=== PATIENT | female | born 1970 | race Caucasian/White ===

== ENCOUNTER 2022-11-16 10:54 | Outpatient (OUT) | payer OTHER, SELFPAY ==
--- NOTE | 2022-11-16 11:05 | MM_ITS ---
Patient: JAMES ROSS Exam Date: 11/16/2022 : 1970 Gender:F Ordering : DR TAMMI IBANEZ D.O. Admission #: [id number] Family : Order #: [id number] CLICK HERE TO VIEW EXAM RADIOLOGY REPORT PROCEDURE: MM TOMOSYNTHESIS SCREENING BI COMPARISON: MG MAMM SCREEN 3D JANUSZ CAD, 05/09/2021. INDICATIONS: mammogram screening Calculator Name NCI Breast Cancer Risk Assessment Tool 5 Year Breast Cancer Risk 1.40% Lifetime Breast Cancer Risk 12.00% Personal Breast Cancer No Personal Ovarian Cancer No Treatments None Family Cancers None LOCATION: [facility] BREAST COMPOSITION: Scattered areas fibroglandular density. FINDINGS: DIAGNOSTIC CATEGORY 1--NEGATIVE. RIGHT BREAST: No significant suspicious finding. No significant change has occurred. LEFT BREAST: No significant suspicious finding. No significant change has occurred. RECOMMENDATIONS: ROUTINE MAMMOGRAM AND CLINICAL EVALUATION IN 12 MONTHS. PLEASE NOTE: A NORMAL MAMMOGRAM DOES NOT EXCLUDE THE POSSIBILITY OF BREAST CANCER. A CLINICALLY SUSPICIOUS PALPABLE LUMP SHOULD BE BIOPSIED. Dictated by: Ras Coates M.D. on 11/17/2022 at 15:04 Approved by: Ras Coates M.D. on 11/17/2022 at 15:05
== END 2022-11-16 10:55 ==
LOC: MAMMO 10:58
PROVIDERS: PCP Internal Medicine; Visit Provider Internal Medicine
DX: Z12.31 Encounter for screening mammogram for malignant neoplasm of breast (principal)
CPT/HCPCS: 77063; 77067

== ENCOUNTER 2022-12-12 20:11 | Outpatient (REF) | payer OTHER, SELFPAY ==
[2022-12-18 10:10] LABS: Age Gdln ACOG Testing Note (.); HPV Aptima Negative (Negative); IGP, Aptima HPV, rfx 16/18,45 Note (.)
== END 2022-12-12 20:12 | disposition home or self-care (01) ==
LOC: LAB 20:11
PROVIDERS: PCP Internal Medicine; Visit Provider Physician Assistant
DX: Z01.419 Encounter for gynecological examination (general) (routine) without abnormal findings (principal)
CPT/HCPCS: 87624; G0145

== ENCOUNTER 2023-11-06 07:45 | Outpatient (OUT) | payer OTHER, SELFPAY ==
[2023-11-06 08:05] LABS: Basophils Absolute Auto 0.1 10^3/uL (0.0-0.1); Basophils Percent Auto 1.2 % (0.2-2.0); Eosinophils Absolute Auto 0.4 10^3/uL (0.0-0.7); Eosinophils Percent Auto 7.2 % (0.9-7.0); Hematocrit 42.6 % (36.0-48.0); Immature Granulocytes Abs Auto 0.02 10^3/uL (0.00-0.03); Immature Granulocytes Pct Auto 0.3 % (0.0-0.5); Lymphocytes Absolute Auto 1.7 10^3/uL (1.2-3.8); Lymphocytes Percent Auto 29.7 % (20.5-60.0); Mean Corpuscular HGB Conc 32.9 g/dL (29.9-35.2); Mean Corpuscular Hemoglobin 28.3 pg (26.7-34.0); Mean Corpuscular Volume 86.1 fL (81.0-99.0); Mean Platelet Volume 10.5 fL (9.5-13.5); Monocytes Absolute Auto 0.6 10^3/uL (0.3-0.8); Monocytes Percent Auto 9.9 % (1.7-12.0); Neutrophils Percent Auto 51.7 % (43.0-75.0); Platelet Count 241 10^3/uL (150-450); Red Blood Count 4.95 10^6/uL (4.20-5.40); Red Cell Distribution Width 13.4 % (11.0-15.0); White Blood Count 5.9 10^3/uL (4.0-11.0)
[2023-11-06 08:28] LABS: Alanine Aminotransferase 34 U/L (14-59); Albumin Level 3.3 g/dL (3.4-5.0); Alkaline Phosphatase 53 U/L (46-116); Anion Gap 10.7; Aspartate Amino Transferase 24 U/L (15-37); BUN Creatinine Ratio 15.6; Bilirubin Total 0.4 mg/dL (0.2-1.0); Carbon Dioxide 29.2 mmol/L (21.0-32.0); Chloride 106 mmol/L (98-107); Chol HDL Ratio 3.3; Cholesterol 210 mg/dL (<=200); Estimated GFR (African America >60 (>=60); Estimated GFR (Non-African Ame >60 (>=60); Globulin 3.4 g/dL; Glucose 90 mg/dL (74-106); HDL Cholesterol 63 mg/dL (40-60); Potassium 3.9 mmol/L (3.5-5.1); Sodium 142 mmol/L (136-145); Thyroid Stimulating Hormone 2.499 uIU/mL (0.358-3.740); Total Protein 6.7 g/dL (6.4-8.2); Triglycerides 114 mg/dL (<=150); VLDL CHOLESTEROL 22.8 mg/dL
== END 2023-11-06 07:46 | disposition home or self-care (01) ==
LOC: LAB 07:46
PROVIDERS: PCP Internal Medicine; Visit Provider Internal Medicine
DX: Z00.00 Encounter for general adult medical examination without abnormal findings (principal)
CPT/HCPCS: 36415; 80053; 80061; 84443; 85025

== ENCOUNTER 2024-01-15 18:44 | Outpatient (REF) | payer OTHER, SELFPAY ==
--- OUTSIDE RECORDS SUMMARY | 2024-01-15 19:00 | XMS_ITS | CCD ---
Author Organization [facility] Care Team Providers Care Hat Brusher Machine Name Role Phone SHAMAR, DR CADENA Attending Unavailable SHAMAR, DR CADENA Consulting Unavailable SHAMAR, DR CADENA Primary Care Unavailable SHAMAR, DR CADENA Admitting Unavailable Shamar, Prasad Unavailable Allergies Allergy Classification Reported Allergen(s) Allergy Type Date of Onset Reaction(s) Facility (1 source) Bacitracin / Neomycin / Polymyxin B Drug Allergy Unknown [facility] [employer] Other (2 sources) Bacitracin Drug Allergy 4 Unknown Reaction [facility] (2 sources) Neomycin Drug Allergy 4 Unknown Reaction [facility] (2 sources) polymyxin B Allergy to substance 4 Unknown Reaction [facility] Medications Current Medications Medication Drug Class(es) Dates Sig (Normalized) Sig (Original) ALPRAZolam 0.25 mg oral tablet (3 sources) Benzodiazepine Start: 09-10-2023 take 0.25 mg by mouth once daily Alprazolam Active 0.25 MG PO Daily September 10, 2023 12:00am Start: 07-13-2022 take 1 tablet by christina once daily as needed for anxiety ALPRAZolam 0.25 MG 1 tablet Orally daily as needed for anxiety for 30 days Jun, Active calcium carbonate 500 mg chewable tablet (1 source) take 1 tablet by mouth every twenty-four hours Tums 500 MG 1 tablet Orally Once a day Active Multivitamin preparation (1 source) take 1 tablet by mouth once daily Multivitamin - 1 tablet Orally Once a day Active sulfamethoxazole 800 mg / trimethoprim 160 mg oral tablet (1 source) Dihydrofolate Reductase Inhibitor Antibacterial, Sulfonamide Antimicrobial Start: 023 take 1 tablet by mouth every twelve hours Bactrim DS 800-160 MG 1 tablet Orally Twice a day for 5 days Jun, Active Completed/Discontinued Medications Medication Drug Class(es) Dates Sig (Normalized) Sig (Original) azithromycin 250 mg oral tablet (2 sources) Macrolide Antimicrobial Start: 09-10-2023 End: 09-11-2023 Azithromycin Discontinued 250 MG PO As Directed 6 5 September 10, 2023 12:00am September 11, 2023 11:33am Problems Problem Classification Problem Date Documented Da te Episodic/Chronic Acute bronchitis (2 sources) Acute bronchitis due to other specified organisms; Translations: [Acute bronchitis] 09-10-2023 Episodic Allergic reactions (1 source) Allergic contact dermatitis due to plants, except food; Translations: [Allergic contact dermatitis due to plants, except food] Episodic Anxiety disorders (4 sources) Generalized anxiety disorder; Translations: [Generalized anxiety disorder] 09-09-2023 Chronic Inflammation; infection of eye (except that caused by tuberculosis or sexually transmitteddisease) (3 sources) Allergic dermatitis of right eye, unspecified eyelid; Translations: [Contact or allergic eyelid dermatitis] 09-10-2023 Episodic Mood disorders (2 sources) Severe recurrent major depression without psychotic features; Translations: [Major depressive disorder, recurrent severe without psychotic features] Onset: 07-14-2015 09-10-2023 Chronic Other nutritional; endocrine; and metabolic disorders (1 source) Morbid obesity; Translations: [Morbid (severe) obesity due to excess calories] Chronic Other nutritional; endocrine; and metabolic disorders (1 source) Obesity; Translations: [Obesity, unspecified] 09-11-2023 Chronic Other nutritional; endocrine; and metabolic disorders (1 source) Obesity, unspecified; Translations: [Obesity, unspecified] 09-11-2023 Chronic Sprains and strains (2 sources) Sprain of shoulder and upper arm; Translations: [Strain of unspecified muscle, fascia and tendon at shoulder and upper arm level, right arm, initial encounter] Episodic Superficial injury; contusion (1 source) Nonvenomous insect bite of trunk without infection; Translations: [Insect bite (nonvenomous) of breast, left breast, initial encounter] Episodic Results Test Name Value Interpretation Reference Range Facil ity CBC AUTO DIFFon 08-10-2022 BASO # 0.1 103/ul Normal 0.0-0.1 [facility] Comment on above: Performed By: #### C BC #### [facility] [address] [place] [address] Dr. Ynes Bustillo Basophils/100 WBC (Bld) 1.0 % Normal 0.2-2.0 [facility] Comment on above: Performed By: #### C BC #### [facility] [address] [place] [address] Dr. Ynes Bustillo EO # 0.5 103/ul Normal 0.0-0.7 [facility] Comment on above: Performed By: #### C BC #### [facility] [address] [place] [address] Dr. Ynes Bustillo Eosinophils/100 WBC (Bld) 7.9 % Critically high 0.9-7.0 [facility] Comment on above: Performed By: #### C BC #### [facility] [address] [place] [address] Dr. Ynes Bustillo Erythrocyte distribution width (RBC) [Ratio] 13.0 % Normal 11.0-15.0 [facility] Comment on above: Performed By: #### C BC #### [facility] [address] [place] [address] Dr. Ynes Bustillo Hematocrit (Bld) [Volume fraction] 43.8 % Normal 36.0-48.0 [facility] Comment on above: Performed By: #### C BC #### [facility] [address] [place] [address] Dr. Ynes Bustillo Hemoglobin (Bld) [Mass/Vol] 14.5 g/dL Normal 12.0-16.0 [facility] Comment on above: Performed By: #### C BC #### [facility] [address] [place] [address] Dr. Ynes Bustillo IG # 0.02 10e3/ul Normal 0.00-0.03 [facility] Comment on above: Performed By: #### C BC #### [facility] [address] [place] [address] Dr. Ynes Bustillo IG % 0.3 % Normal 0.0-0.5 [facility] Comment on above: Performed By: #### C BC #### [facility] [address] [place] [address] Dr. Ynes Bustillo LYMPH # 2.3 103/ul Normal 1.2-3.8 [facility] Comment on above: Performed By: #### C BC #### [facility] [address] [place] [address] Dr. Ynes Bustillo Lymphocytes/100 WBC (Bld) 34.2 % Normal 20.5-60.0 [facility] Comment on above: Performed By: #### C BC #### [facility] [address] [place] [address] Dr. Ynes Bustillo MANUAL DIFF REQ NO Normal [facility] Comment on above: Performed By: #### C BC #### [facility] [address] [place] [address] Dr. Ynes Bustillo MCH (RBC) [Entitic mass] 28.5 pg Normal 26.7-34.0 [facility] Comment on above: Performed By: #### C BC #### [facility] [address] [place] [address] Dr. Ynes Bustillo MCHC (RBC) [Mass/Vol] 33.1 g/dL Normal 29.9-35.2 [facility] Comment on above: Performed By: #### C BC #### [facility] [address] [place] [address] Dr. Ynes Bustillo MCV (RBC) [Entitic vol] 86.2 fL Normal 81.0-99.0 [facility] Comment on above: Performed By: #### C BC #### [facility] [address] [place] [address] Dr. Ynes Bustillo MONO # 0.6 103/ul Normal 0.3-0.8 [facility] Comment on above: Performed By: #### C BC #### [facility] [address] [place] [address] Dr. Ynes Bustillo Monocytes/100 WBC (Bld) 8.8 % Normal 1.7-12.0 [facility] Comment on above: Performed By: #### C BC #### [facility] [address] [place] [address] Dr. Ynes Bustillo NEUT # 3.2 103/ul Normal 1.4-6.5 [facility] Comment on above: Performed By: #### C BC #### [facility] [address] [place] [address] Dr. Ynes Bustillo Neutrophils/100 WBC (Bld) 47.8 % Normal 43.0-75.0 [facility] Comment on above: Performed By: #### C BC #### [facility] [address] [place] [address] Dr. Ynes Bustillo Platelet mean volume (Bld) [Entitic vol] 10.5 fL Normal 9.5-13.5 [facility] Comment on above: Performed By: #### C BC #### [facility] [address] [place] [address] Dr. Ynes Bustillo PLT 260 103/ul Normal 150-450 [facility] Comment on above: Performed By: #### C BC #### [facility] [address] [place] [address] Dr. Ynes Bustillo RBC 5.08 106/ul Normal 4.20-5.40 [facility] Comment on above: Performed By: #### C BC #### [facility] [address] [place] [address] Dr. Ynes Bustillo WBC 6.7 103/ul Normal 4.0-11.0 [facility] Comment on above: Performed By: #### C BC #### [facility] [address] [place] [address] Dr. Ynes Bustillo LIPID PROFILEon 08-10-2022 CHOL-HDL RATIO NORM SEE BELOW Normal [facility] Comment on above: Result Comment: 3.3 - 4.4 LOW RISK 4.4 - 7.1 AVERAGE RISK 7.1 - 11.0 MODERATE RISK >11.0 HIGH RISK Performed By: #### L IPID, CMP #### [facility] [address] [place] [address] Dr. Ynes Bustillo Cholesterol [Mass/Vol] 197 mg/dL Normal <=200 [facility] Comment on above: Performed By: #### L IPID, CMP #### [facility] [address] [address] [address] Ynes Bustillo Cholesterol in HDL [Mass/Vol] 58 mg/dL Normal 40-60 [facility] Comment on above: Performed By: #### L IPID, CMP #### [facility] [address] [address] [address] Ynes Bustillo Cholesterol in LDL [Mass/Vol] 122.4 mg/dL Normal [facility] Comment on above: Performed By: #### L IPID, CMP #### [facility] [address] [address] [address] Ynes Bustillo Cholesterol.total/C holesterol in HDL [Mass ratio] 3.4 {ratio} Normal [facility] Comment on above: Performed By: #### L IPID, CMP #### [facility] [address] [address] [address] Ynes Bustillo HDL NORMAL > or = 60 mg/dl - LO W CARDIOVASCULAR RISK <40 mg/dl - HIGH CARDIOVASCULAR RISK Normal [facility] Comment on above: Performed By: #### L IPID, CMP #### [facility] [address] [address] [address] Ynes Bustillo LDL CALC NORMAL SEE BELOW Normal [facility] Comment on above: Result Comment: <100 mg/dl OPTIMAL 100 - 129 mg/dl NEAR OR ABOVE OPTIMAL 130 - 159 mg/dl BORDERLINE HIGH 160 - 189 mg/dl HIGH >190 mg/dl VERY HIGH Performed By: #### L IPID, CMP #### [facility] [address] [address] [address] Ynes Bustillo Triglyceride [Mass/Vol] 83 mg/dL Normal <=150 [facility] Comment on above: Performed By: #### L IPID, CMP #### [facility] [address] [place] [address] Dr. Ynes Bustillo VLDL CALC 16.6 mg/dL Normal [facility] Comment on above: Performed By: #### L IPID, CMP #### [facility] [address] [address] [address] Ynes Bustillo PROF 14(COMP METB)on 02-23-2 023 Albumin [Mass/Vol] 3.6 g/dL Normal 3.4-5.0 [facility] Comment on above: Performed By: #### L IPID, CMP #### [facility] [address] [address] [address] Ynes Bustillo Albumin/Globulin [Mass ratio] 1.1 {ratio} Normal [facility] Comment on above: Performed By: #### L IPID, CMP #### [facility] [address] [address] [address] Ynes Bustillo ALP [Catalytic activity/Vol] 56 U/L Normal 46-116 [facility] Comment on above: Performed By: #### L IPID, CMP #### [facility] [address] [place] [address] Dr. Ynes Bustillo ALT [Catalytic activity/Vol] 37 U/L Normal 14-59 [facility] Comment on above: Performed By: #### L IPID, CMP #### [facility] [address] [address] [address] Ynes Bustillo Anion gap [Moles/Vol] 9.1 mmol/L Normal [facility] Comment on above: Performed By: #### L IPID, CMP #### [facility] [address] [place] [address] Dr. Ynes Bustillo AST [Catalytic activity/Vol] 27 U/L Normal 15-37 [facility] Comment on above: Performed By: #### L IPID, CMP #### [facility] [address] [address] [address] Ynes Bustillo Bilirubin [Mass/Vol] 0.4 mg/dL Normal 0.2-1.0 [facility] Comment on above: Performed By: #### L IPID, CMP #### [facility] [address] [place] [address] Dr. Ynes Bustillo Calcium [Mass/Vol] 8.7 mg/dL Normal 8.5-10.1 [facility] Comment on above: Performed By: #### L IPID, CMP #### [facility] [address] [address] [address] Ynes Bustillo Chloride [Moles/Vol] 106 mmol/L Normal 98-107 [facility] Comment on above: Performed By: #### L IPID, CMP #### [facility] [address] [place] [address] Dr. Ynes Bustillo CO2 [Moles/Vol] 28.6 mmol/L Normal 21.0-32.0 [facility] Comment on above: Performed By: #### L IPID, CMP #### [facility] [address] [place] [address] Dr. Ynes Bustillo Creatinine [Mass/Vol] 0.88 mg/dL Normal 0.55-1.02 [facility] Comment on above: Performed By: #### L IPID, CMP #### [facility] [address] [place] [address] Dr. Ynes Bustillo EGFR-AF FRENCH >60 Normal >=60 [facility] Comment on above: Performed By: #### L IPID, CMP #### [facility] [address] [place] [address] Dr. Ynes Bustillo EGFR-NON AF FRENCH >60 Normal >=60 [facility] Comment on above: Performed By: #### L IPID, CMP #### [facility] [address] [place] [address] Dr. Ynes Bustillo Globulin (S) [Mass/Vol] 3.4 g/dL Normal [facility] Comment on above: Performed By: #### L IPID, CMP #### [facility] [address] [place] [address] Dr. Ynes Bustillo Glucose [Mass/Vol] 85 mg/dL Normal 74-106 [facility] Comment on above: Performed By: #### L IPID, CMP #### [facility] [address] [place] [address] Dr. Ynes Bustillo Potassium [Moles/Vol] 3.7 mmol/L Normal 3.5-5.1 [facility] Comment on above: Performed By: #### L IPID, CMP #### [facility] [address] [place] [address] Dr. Ynes Bustillo Protein [Mass/Vol] 7.0 g/dL Normal 6.4-8.2 [facility] Comment on above: Performed By: #### L IPID, CMP #### [facility] [address] [place] [address] Dr. Ynes Bustillo Sodium [Moles/Vol] 140 mmol/L Normal 136-145 [facility] Comment on above: Performed By: #### L IPID, CMP #### [facility] [address] [place] [address] Dr. Ynes Bustillo Urea nitrogen [Mass/Vol] 12.0 mg/dL Normal 7.0-18.0 [facility] Comment on above: Performed By: #### L IPID, CMP #### [facility] [address] [place] [address] Dr. Ynes Bustillo Urea nitrogen/Creatinine [Mass ratio] 13.6 mg/mg Normal [facility] Comment on above: Performed By: #### L IPID, CMP #### [facility] [address] [place] [address] Dr. Ynes Bustillo UA RANDOM W/MICROSCOPICon BACTERIA LARGE Abnormal NONE SEEN [facility] Comment on above: Performed By: #### U AMIC #### [facility] [address] [place] [address] Dr. Ynes Bustillo Bilirubin Ql (U) Negative Normal NEGATIVE [facility] Comment on above: Performed By: #### U AMIC #### [facility] [address] [place] [address] Dr. Ynes Bustillo CAST NONE SEEN Normal NONE SEEN [facility] Comment on above: Performed By: #### U AMIC #### [facility] [address] [place] [address] Dr. Ynes Bustillo Clarity (U) CLEAR Normal CLEAR [facility] Comment on above: Performed By: #### U AMIC #### [facility] [address] [place] [address] Dr. Ynes Bustillo Color (U) YELLOW Normal YELLOW [facility] Comment on above: Performed By: #### U AMIC #### [facility] [address] [address] [address] Ynes Bustillo Crystals LM Nom (Urine sed) NONE SEEN Normal NONE SEEN [facility] Comment on above: Performed By: #### U AMIC #### [facility] [address] [address] [address] Ynes Bustillo Epithelial cells LM Ql (Urine sed) MANY Abnormal NONE SEEN /RARE [facility] Comment on above: Performed By: #### U AMIC #### [facility] [address] [address] [address] Ynes Bustillo Glucose Ql (U) Negative Normal NEGATIVE [facility] Comment on above: Performed By: #### U AMIC #### [facility] [address] [address] [address] Ynes Bustillo Hemoglobin Ql (U) Negative Normal NEGATIVE [facility] Comment on above: Performed By: #### U AMIC #### [facility] [address] [address] [address] Ynes Bustillo Ketones Ql (U) Negative Normal NEGATIVE [facility] Comment on above: Performed By: #### U AMIC #### [facility] [address] [address] [address] Ynes Bustillo LEUKOCYTES Negative Normal NEGATIVE [facility] Comment on above: Performed By: #### U AMIC #### [facility] [address] [address] [address] Ynes Bustillo MUCOUS NONE SEEN Normal NONE SEEN [facility] Comment on above: Performed By: #### U AMIC #### [facility] [address] [place] [address] Dr. Ynes Bustillo Nitrite Ql (U) Negative Normal NEGATIVE [facility] Comment on above: Performed By: #### U AMIC #### [facility] [address] [place] [address] Dr. Ynes Bustillo pH (U) 5.5 [pH] Normal 5-9 [facility] Comment on above: Performed By: #### U AMIC #### [facility] [address] [place] [address] Dr. Ynes Bustillo RBC NONE SEEN Abnormal 0-2 [facility] Comment on above: Performed By: #### U AMIC #### [facility] [address] [address] [address] Ynes Bustillo SPEC GRAVITY >=1.030 Abnormal 1.005-<=1.025 [facility] Comment on above: Performed By: #### U AMIC #### [facility] [address] [address] [address] Ynes Bustillo UA PROTEIN Negative Normal NEGATIVE/ TRACE [facility] Comment on above: Performed By: #### U AMIC #### [facility] [address] [address] [address] Yens Bustillo Urobilinogen Qn (U) 0.2 {Izaiah'U}/dL Normal 0.2 - 1. 0 [facility] Comment on above: Performed By: #### U AMIC #### [facility] [address] [address] [address] Ynes Bustillo WBC 5-10 Abnormal NONE SEEN [facility] Comment on above: Performed By: #### U AMIC #### [facility] [address] [address] [address] Ynes Bustillo Vital Signs Date Time Vital Sign Value Performing Clinician Selenai lity 09-11-2023 11:36-0400 Body height 165.1 cm [facility] 09-11-2023 11:36-0400 Body mass index (BMI) [Ratio] 39.3 kg/m2 [facility] 09-11-2023 11:36-0400 Body weight 107.27 kg [facility] 09-11-2023 11:36-0400 Diastolic blood pressure 77 mm[Hg] [facility] 09-11-2023 11:36-0400 Heart rate 80 /min [facility] 09-11-2023 11:36-0400 Respiratory rate 12 /min [facility] 09-11-2023 11:36-0400 Systolic blood pressure 109 mm[Hg] [facility] Encounters Encounter Date Encounter Type Care Provider Facility Start: 09-11-2023 End: 09-11-2023 ambulatory [facility] Work Phone: Start: 09-11-2023 End: 09-11-2023 Encounter for general adult medical examination without abnormal findings [facility] Start: 09-11-2023 End: 09-11-2023 Patient encounter procedure [facility] Work Phone: Start: 09-10-2023 End: 09-10-2023 ambulatory [facility] Work Phone: Start: 09-10-2023 End: 09-10-2023 Patient encounter procedure [facility] Work Phone: Start: 08-14-2022 Encounter for genera l adult medical examination without abnormal findings DR PRASAD IBANEZ [facility] Start: 08-10-2022 End: 08-11-[address] PRASAD IBANEZ Facility:[facility] Start: 08-10-2022 End: 08-11-2022 Encounter for general adult medical examination without abnormal findings DR PRASAD IBANEZ Facility:[facility] Start: 08-01-2022 End: 08-01-2022 ambulatory Prasad Ibanez Other [facility] [employer] Other Start: 08-01-2022 Telephone encounter Prasad Ibanez [facility] Plan of Treatment Date Care Activity Detail Author Comprehensive metabo lic 2000 panel - Serum or Plasma [facility] enter [facility] Immunizations Immunization Date Immunization Notes Care Provider Fa cility 04-16-2020 influenza virus vacc ine, unspecified formulation [facility] 12-15-2016 tetanus and diphther ia toxoids, adsorbed, preservative free, for adult use (5 Lf of tetanus toxoid and 2 Lf of diphtheria toxoid) [facility] Payers Date Payer Category Payer Unknown [id number] 1958 Unknown [id number] Social History Date Type Detail Facility Sex Assigned At [facility] [employer] Other Start: 1970 Sex Assigned At Female F [facility] Start: 09-11-2023 Tobacco smoking stat us NHIS Ex-smoker (finding) [facility] Evaluation note Note Date & Type Note Facility Evaluation note No Information [facility] & [facility] [employer]AF[employer] Other Evaluation note Note Date & Type Note Facility Evaluation note Diagnosis Onset Date Acute bronchitis due to othe r specified organisms noneactive [facility] Work Phone: Evaluation note Note Date & Type Note Facility Evaluation note Diagnosis Onset Date Acute bronchitis due to othe r specified organisms noneactive PETER (generalized anxiety disorder) acute Obesity acute Wellness examination noneact felipa [facility] Work Phone: History general Narrative - Reported Note Date & Type Note Facility History general Narrative - Reported Type Medical History Contact dermatitis of right eyel id Medical History Allergic contact calin matitis due to plants, except food Medical History PETER (generalized anxiety disorde r) Medical History Muscle strain of rig ht upper extremity, initial encounter Medical History Insect bite (nonveno mous) of breast, left breast, initial encounter Medical History Lumbar strain, initial encounter Surgical History TUBAL LIGATION Surgical History TONSILLECTOMY Surgical History Hospitalization History SEE SURGICAL HX [facility] [employer] Other Summary Purpose Family History No Family History Records Found Advance Directives Advance Directive Response Recorded Date/ Time Advance Directives No September 09 8:44am Chief Complaint and Reason for Visit Chief Complaint Cough, Sinuses- [phone] Reason for Visit Acute bronchitis due to other specified organisms Chief Complaint Cough, Sinuses- [phone] Wellness Reason for Visit Acute bronchitis due to other specified organisms PETER (generalized anxiety disorder) Obesity Wellness examination Additional Source Comments INFORMATION SOURCE (unrecogn ized section and content) DATE CREATED AUTHOR 08/15/2022 [facility] REASON FOR VISIT (unrecogniz ed section and content) Update Care Teams (unrecognized sec tion and content) Team Status: Active Member Role Status Dates Prasad Ibanez DO Primary Care Provider Active Team Status: Inactive Member Role Status Dates Prasad Ibanez DO Primary Care Provide r, Attending Provider Active Start: September 10, 2023 End: September 10, 2023 Team Status: Inactive Member Role Status Dates Prasad Ibanez DO Primary Care Provide r, Attending Provider Active Start: September 11, 2023 End: September 11, 2023 Goals (unrecognized section and content) Goals may be documented in a n alternate section FOR RECORDS PERTAINING TO PATIENTS WHO ARE OR HAVE BEEN ENROLLED IN A CHEMICAL DEPENDENCY/SUBSTANCEABUSE PROGRAM, SOME INFORMATION MAY BE OMITTED. This clinical summary was aggregated from multiple sources. Caution should be exercised in using it in the provision of clinical care. This summary normalizes information from multiple sources, and as a consequence, information in this document may materially change the coding, format and clinical context of patient data. In addition, data may be omitted in some cases. CLINICAL DECISIONS SHOULD BE BASED ON THE PRIMARY CLINICAL RECORDS. [facility]. provides no warranty or guarantee of the accuracy or completeness of information in this document.
== END 2024-01-15 18:45 | disposition home or self-care (01) ==
LOC: LAB 18:44
PROVIDERS: PCP Internal Medicine; Visit Provider Physician Assistant
DX: Z01.419 Encounter for gynecological examination (general) (routine) without abnormal findings (principal)
CPT/HCPCS: 87624; 88175

== ENCOUNTER 2024-04-15 12:33 | Outpatient (OUT) | payer OTHER, SELFPAY ==
--- NOTE | 2024-04-15 | MM_ITS ---
Patient Name: JAMES ROSS MR#: [id number] : 1970 Exam Date: 04/15/2024 Ordering Doctor: CAM Camarena . RADIOLOGY REPORT PROCEDURE: MM TOMOSYNTHESIS SCREENING BI COMPARISON: MM TOMOSYNTHESIS SCREENING BI, 11/16/2022. MG MAMM SCREEN 3D JANUSZ CAD, 05/09/2021. MG MAMM SCREEN JANUSZ W CAD, 01/27/2020. MG MAMM JANUSZ SCRN W CAD DIG, 04/27/2014. INDICATIONS: Screening of malignant neoplasm of breasts Calculator Name NCI Breast Cancer Risk Assessment Tool 5 Year Breast Cancer Risk 1.50% Lifetime Breast Cancer Risk 11.80% Personal Breast Cancer No Personal Ovarian Cancer No Treatments None Family Cancers None LOCATION: [facility] BREAST COMPOSITION: The breasts are almost entirely fatty. FINDINGS: DIAGNOSTIC CATEGORY 1--NEGATIVE. RIGHT BREAST: No significant suspicious finding. No significant change has occurred. LEFT BREAST: No significant suspicious finding. No significant change has occurred. RECOMMENDATIONS: ROUTINE MAMMOGRAM AND CLINICAL EVALUATION IN 12 MONTHS. PLEASE NOTE: A NORMAL MAMMOGRAM DOES NOT EXCLUDE THE POSSIBILITY OF BREAST CANCER. A CLINICALLY SUSPICIOUS PALPABLE LUMP SHOULD BE BIOPSIED. Dictated by: Ras Coates M.D. on 04/15/2024 at 15:30 Approved by: Ras Coates M.D. on 04/15/2024 at 15:32
--- NOTE | 2024-04-15 | XR_ITS ---
The [address] [address] Patient Name: JAMES ROSS MRN: [id number] date: 1970 Sex: F Assigned Patient Location: [facility] Current Patient Location: Accession/Order Number: [id number] Exam Date: 04/15/2024 13:05 Report Date: 04/16/2024 05:21 At the request of: MAURICIO WOODS Procedure: XR DEXA axial skeleton EXAMINATION: XR DEXA axial skeleton HISTORY: POSTMENOPAUSAL STATE COMPARISON: No relevant comparison available. TECHNIQUE: Dual-energy X-ray absorptiometry (DXA) was performed. FINDINGS: SPINE ANALYSIS: Average bone mineral density is 1.169 g/cm2. T-score (standard deviation relative to young adult mean): -0.3 . HIP ANALYSIS: Lowest bone mineral density is within the right femoral neck, 0.970 g/cm2. T-score (standard deviation relative to young adult mean): -0.5 . XR/XR DEXA axial skeleton IMPRESSION: World Health Organization Classification: Normal - Low Fracture Risk FRAX: Cannot be calculated. Pharmacologic treatment recommendations * No uniform recommendation applies to all patients. Management plans must be individualized. * Consider initiating pharmacologic treatment in postmenopausal women and men >= 50 years of age who have the following: Primary fracture prevention: * T-score <= - 2.5 at the femoral neck, total hip, lumbar spine, 33% radius (some uncertainty with existing data) by DXA. * Low bone mass (osteopenia: T-score between - 1.0 and - 2.5) at the femoral neck or total hip by DXA with a 10-year hip fracture risk >= 3% or a 10-year major osteoporosis-related fracture risk >= 20% (i.e., clinical vertebral, hip, forearm, or proximal humerus) based on the US-adapted FRAXregistered model. Secondary fracture prevention: * Fracture of the hip or vertebra regardless of BMD [4, 5]. * Fracture of proximal humerus, pelvis, or distal forearm in persons with low bone mass (osteopenia: T-score between - 1.0 and - 2.5). The decision to treat should be individualized in persons with a fracture of the proximal humerus, pelvis, or distal forearm who do not have osteopenia or low BMD [12, 13]. Nicolasa MS, Zonia SL, Teddy KL, Cory EM, Smiley KG, AJ, Vincenzo ES. The clinician's guide to prevention and treatment of osteoporosis. Osteoporos Int. 2021;33(10):4534-8119. doi: 10.1007/u64316-693-56263-a. Epub 2021Oct 13. Erratum in: Osteoporos Int. 2021Jan 12;: PMID: [id number]; PMCID: [id number]. Electronically authenticated by: ELZA BRASWELL Date: 04/16/2024 05:21
== END 2024-04-15 12:34 | disposition home or self-care (01) ==
LOC: MAMMO 12:33
PROVIDERS: PCP Internal Medicine; Visit Provider Physician Assistant
DX: Z78.0 Asymptomatic menopausal state (principal); Z12.31 Encounter for screening mammogram for malignant neoplasm of breast
CPT/HCPCS: 77063; 77067; 77080

== ENCOUNTER 2025-03-13 08:50 | Outpatient (OUT) | payer OTHER, SELFPAY ==
--- OUTSIDE RECORDS SUMMARY | 2025-03-13 08:52 | XMS_ITS | Clinical Summary ---
Author Organization [facility] Address [address] [place] [address] Care Team Providers Care Night Shift Manager Name Role Phone Ria Williamson MD Primary Care Provider [phone] Allergies Active Allergy Reactions Criticality Noted Date Comments Neomycin-Bacitracin Zn-Polymyx Rash Low 02/26 Bacitracin-Polymyxin B 12/12/2022 Medications ALPRAZolam (Xanax) 0.25 MG tablet Take 0.25 mg by mouth 3 (three) times a day as needed. 07/13/2022 Active Multiple Vitamin (multivitamin) capsule Take 1 capsule by mouth in the morning. Active Family History Medical History Relation Name Comments Premature Daughter Heart disease Father Thyroid disease Mother Relation Name Status Comments Brother 1 Alive Brother 2 Alive Daughter Alive Father Alive Mother Alive Sister Alive Son Alive Social History Tobacco Use Types Packs/Day Years Used Date Smoking Tobacco: Never Assessed Comments No Sex and Gender Information Value Date Recorded Sex Assigned at Female 11/07/2022 3:59 PM EDT Legal Sex Female 3:57 PM EDT Gender Identity Not on file Sexual Orientation Not on file Last Filed Vital Signs Vital Sign Reading Time Taken Comments Blood Pressure 104/70 01/15/2024 9:13 AM EDT Pulse - - Temperature - - Respiratory Rate - - Oxygen Saturation - - Inhaled Oxygen Concentration - - Weight 107 kg (235 lb 6.4 oz) 01/15/2024 9:13 AM EDT Height 165.1 cm (5' 5 ) 01/15/2024 9:13 AM EDT Body Mass Index 39.17 01/15/2024 9:13 AM EDT Plan of Treatment Health Maintenance Due Date Last Done Comments CT Colonography 1970 Colonoscopy 1970 FIT 1970 FOBT 1970 Sigmoidoscopy 1970 Colorectal Cancer Screening 03/09/2024 FIT-DNA 03/09/2024 03/09/2021 Influenza Vaccine (#1) 2025 , 04/13/2022, 05/24/2021, Additional history exists Mammogram 04/15/2025 04/15/2024 Pap Smear 01/14/2027 01/15/2024, 12/12/2022 Cervical Cancer Screening 01/27/2028 HPV/Cotest 01/27/2028 01/26/2023 Procedures Procedure Name Priority Date/Time Associated Diagnosis Comments MM TOMOSYNTHESIS SCREENING BI 04/15/2024 3:32 PM EDT PAP SMEAR Routine 01/15/2024 12:00 AM EDT THINPREP PAP AND HPV MRNA E6/E7 W/RFL HPV 16,18/45 Routine 01/26/2023 11:19 AM EDT Well woman exam with routine gynecological exam from Last 3 Months or Most Recently Relevant to Health Maintenance Results * MM TOMOSYNTHESIS SCREENING BI (04/15/2024 3:32 PM EDT) Anatomical Region Laterality Modality Other 04/15/2024 3:32 PM EDT Narrative 04/15/2024 3:33 PM [place]T [place] [address] Mammography Report Signed Patient: RIKA NUNES MR#: [id number] : 1970 Acct:[id number] Age/Sex: 53 / F ADM Date: 04/15/24 Loc: MAMMO Attending Dr: Leeanna Camarena Ordering Physician: Leeanna Camarena Results: Date of Service: 04/15/24 Follow Up: Procedure(s): MM tomosynthesis screening BI Accession Number(s): [id number] cc: Leeanna Camarena; Prasad Cassidy D.O. Patient Name: RIKA NUNES MR#: [id number] : 1970 Exam Date: 04/15/2024 Ordering Doctor: CAM Camarena . RADIOLOGY REPORT PROCEDURE: MM TOMOSYNTHESIS SCREENING BI COMPARISON: MM TOMOSYNTHESIS SCREENING BI, 2022. MG MAMM SCREEN 3D JANUSZ CAD, 05/09/2021. MG MAMM SCREEN JANUSZ W CAD, 01/27/2020. MG MAMM JANUSZ SCRN W CAD DIG, 04/27/2014. INDICATIONS: Screening of malignant neoplasm of breasts Calculator Name NCI Breast Cancer Risk Assessment Tool 5 Year Breast Cancer Risk 1.50% Lifetime Breast Cancer Risk 11.80% Personal Breast Cancer No Personal Ovarian Cancer No Treatments None Family Cancers None LOCATION: The [facility] BREAST COMPOSITION: The breasts are almost entirely fatty. FINDINGS: DIAGNOSTIC CATEGORY 1--NEGATIVE. RIGHT BREAST: No significant suspicious finding. No significant change has occurred. LEFT BREAST: No significant suspicious finding. No significant change has occurred. RECOMMENDATIONS: ROUTINE MAMMOGRAM AND CLINICAL EVALUATION IN 12 MONTHS. PLEASE NOTE: A NORMAL MAMMOGRAM DOES NOT EXCLUDE THE POSSIBILITY OF BREAST CANCER. A CLINICALLY SUSPICIOUS PALPABLE LUMP SHOULD BE BIOPSIED. Dictated by: Ras Coates M.D. on 04/15/2024 at 15:30 Approved by: Ras Coates M.D. on 04/15/2024 at 15:32 Dictated By: Ras Coates M.D. Signed By: 04/15/24 1533 DD/ 1532 TD/TT: Hourly Caregiver: Procedure Note Radiology, Radiologist, - 04/15/[address] [place] [address] Mammography Report Signed Patient: RIKA NUNES SMR#: [id number] : 1970Acct:[id number] Age/Sex: 53 / FADM Date: 04/15/24 Loc: MAMMO Attending Dr: Leeanna Camarena Ordering Physician: Leeanna CamarenaResults: Date of Service: 04/15/24Follow Up: Procedure(s): MM tomosynthesis screening BI Accession Number(s): [id number] cc: Leeanna Camarena; Prasad Cassidy D.O. Patient Name: RIKA NUNES MR#: [id number] : 1970 Exam Date: 04/15/2024 Ordering Doctor: CAM Camarena . RADIOLOGY REPORT PROCEDURE: MM TOMOSYNTHESIS SCREENING BI COMPARISON: MM TOMOSYNTHESIS SCREENING BI, 2022. MG MAMM [id number] JANUSZ CAD, 05/09/2021. MG MAMM SCREEN JANUSZ W CAD, 01/27/2020. MG MAMM BILSCRN W CAD DIG, 04/27/2014. INDICATIONS: Screening of malignant neoplasm of breasts Calculator Name NCI Breast Cancer Risk Assessment Tool 5 Year Breast Cancer Risk 1.50% Lifetime Breast Cancer Risk 11.80% Personal Breast Cancer No Personal Ovarian Cancer No Treatments None Family Cancers None LOCATION: The [facility] BREAST COMPOSITION: The breasts are almost entirely fatty. FINDINGS: DIAGNOSTIC CATEGORY 1--NEGATIVE. RIGHT BREAST: No significant suspicious finding. No significant changehas occurred. LEFT BREAST: No significant suspicious finding. No significant changehas occurred. RECOMMENDATIONS: ROUTINE MAMMOGRAM AND CLINICAL EVALUATION IN 12 MONTHS. PLEASE NOTE: A NORMAL MAMMOGRAM DOES NOT EXCLUDE THE POSSIBILITY OFBREAST CANCER. A CLINICALLY SUSPICIOUS PALPABLE LUMP SHOULD BE BIOPSIED. Dictated by: Ras Coates M.D. on 04/15/2024 at 15:30 Approved by: Ras Coates M.D. on 04/15/2024 at 15:32 Dictated By: Ras Coates M.D. Signed By:04/15/24 1533 DD/ 1532 TD/TT: Hourly Caregiver: Leeanna [facility] Final Result * Pap Smear (01/15/2024 12:00 AM EDT) Swab Cervical swab / Unknown [facility] LAB CYTOLOGY ORDERABLES Final Result EXTERNAL LAB * THINPREP PAP AND HPV MRNA E6/E7 W/RFL HPV 16,18/45 (01/26/2023 11:19 AM EDT) us Leeanna LEVY LAB BLOOD ORDERABLES Final Resul t EXTERNAL LAB from Last 3 Months or Most Recently Relevant to Health Maintenance Insurance [facility] Care Teams Night Shift Manager Relationship Specialty Start Date End Date Ria Williamson MD PCP - General Family Medicine 12/12/22
--- OUTSIDE RECORDS SUMMARY | 2025-03-13 08:52 | XMS_ITS | Encounter Summary ---
Author Organization [facility] Address [address] [place] [address] Care Team Providers Care Steward Racetrack Name Role Phone Ria Williamson MD Primary Care Provider Encounter Details Date Type Department Care Team (Late st Contact Info) Description 04/15/2024 Clinisync Result Encounter [facility] External Department Unsolicited Leeanna Camarena, CAM [address] [place] [address] [place] [address] Social History Tobacco Use Types Packs/Day Years Used Date Smoking Tobacco: Never Assessed Comments No Sex and Gender Information Value Date Recorded Sex Assigned at Female 11/07/2022 3:59 PM EDT Legal Sex Female 3:57 PM EDT Gender Identity Not on file Sexual Orientation Not on file documented as of this encounter Plan of Treatment Not on file documented as of this encounter Procedures Procedure Name Priority Date/Time Associated Diagnosis Comments MM TOMOSYNTHESIS SCREENING BI 04/15/2024 3:32 PM EDT documented in this encounter Results * MM TOMOSYNTHESIS SCREENING BI (04/15/2024 3:32 PM EDT) Anatomical Region Laterality Modality Other 04/15/2024 3:32 PM EDT Narrative 04/15/2024 3:33 PM EDT The [address] [address] Mammography Report Signed Patient: RIKA NUNES MR#: [id number] : 1970 Acct:[id number] Age/Sex: 53 / F ADM Date: 04/15/24 Loc: MAMMO Attending Dr: Leeanna Camarena Ordering Physician: Leeanna Camarena Results: Date of Service: 04/15/24 Follow Up: Procedure(s): MM tomosynthesis screening BI Accession Number(s): [id number] cc: Leeanna Camarena; Prasad Cassidy D.O. Patient Name: RIKA NUNES MR#: [id number] : 1970 Exam Date: 04/15/2024 Ordering Doctor: [...] Treatments None Family Cancers None LOCATION: [facility] BREAST COMPOSITION: The breasts are almost entirely [...] Signed By: 04/15/24 1533 DD/ 1532 TD/TT: Tool/Die Maker: Procedure Note Radiology, Radiologist, MD - 04/15/2024 [place] [address] Mammography Report Signed Patient: RIKA NUNES SMR#: [id number] : 1970Acct:[id number] Age/Sex: 53 / FADM Date: 04/15/24 Loc: MAMMO Attending Dr: Leeanna Camarena Ordering Physician: Leeanna CamarenaResults: Date of Service: 04/15/24Follow Up: Procedure(s): MM tomosynthesis screening BI Accession Number(s): [id number] cc: Leeanna Camarena; Prasad Cassidy D.O. Patient Name: RIKA NUNES MR#: [id number] : 1970 Exam Date: 04/15/2024 Ordering Doctor: CAM Camarena . RADIOLOGY REPORT PROCEDURE: MM TOMOSYNTHESIS SCREENING BI COMPARISON: MM TOMOSYNTHESIS SCREENING BI, 2022. MG MAMM [id number] JANUSZ CAD, 05/09/2021. MG MAMM SCREEN JANUSZ W CAD, 01/27/2020. MG MAMM BILSCRN W CAD DIG, 04/27/2014. INDICATIONS: Screening of malignant neoplasm of breasts Calculator Name NCI Breast Cancer Risk Assessment Tool 5 Year Breast Cancer Risk 1.50% Lifetime Breast Cancer Risk 11.80% Personal Breast Cancer No Personal Ovarian Cancer No Treatments None Family Cancers None LOCATION: [facility] BREAST COMPOSITION: The breasts are almost entirely [...] M.D. Signed By:04/15/24 1533 DD/ 1532 TD/TT: Tool/Die Maker: Leeanna [facility] Final Result documented in this encounter Visit Diagnoses Not on filedocumented in this encounter Care Teams Steward Racetrack Relationship Specialty Start Date End Date Ria Williamson MD PCP - General Family Medicine 12/12/22 documented as of this encounter
--- OUTSIDE RECORDS SUMMARY | 2025-03-13 08:52 | XMS_ITS | Encounter Summary ---
Author Organization [facility] Address [address] [place] [address] Care Team Providers Care Water Sander Name Role Phone Ria Williamson MD Primary Care Provider [phone] Encounter Details Date Type Department Care Team (Late st Contact Info) Description 01/22/2024 Orders Only [facility] [address] [place] [address] Sonia Arellano LPN [address] [employer] [facility] [address] [place] [id number] Social History Tobacco Use Types Packs/Day Years [...] Procedure Name Priority Date/Time Associated Diagnosis Comments PAP SMEAR Routine 01/15/2024 12:00 AM EDT documented in this encounter Results * Pap Smear (01/15/2024 12:00 AM EDT) Swab Cervical swab / Unknown us [facility] LAB CYTOLOGY ORDERABLES Final Result EXTERNAL LAB documented in this encounter Visit Diagnoses Not on filedocumented in this encounter Care Teams Water Sander Relationship Specialty Start Date End Date Ria Williamson MD PCP - General Family Medicine 12/12/22 documented as of this encounter
--- OUTSIDE RECORDS SUMMARY | 2025-03-13 08:52 | XMS_ITS | Encounter Summary ---
Author Organization [facility] Address [address] [place] [address] Care Team Providers Care Smoking Pipe Driller And Threader Name Role Phone Ria Williamson MD Primary Care Provider [phone] Encounter Details Date Type Department Care Team (Late st Contact Info) Description 01/07/2024 Orders Only [facility] [address] [address] Sonia Arellano LPN [address] [employer] [facility] [address] [place] [id number] Social History Tobacco Use Types Packs/Day Years Used Date Smoking Tobacco: Never Assessed Comments Unknown Sex and Gender Information Value Date Recorded Sex Assigned at Female 11/07/2022 3:59 PM EDT Legal Sex Female 3:57 PM EDT Gender Identity Not on file Sexual Orientation Not on file documented as of this encounter Plan of Treatment Not on file documented as of this encounter Procedures Procedure Name Priority Date/Time Associated Diagnosis Comments PAP SMEAR Routine 12/12/2022 12:00 AM EDT documented in this encounter Results * Pap Smear (12/12/2022 12:00 AM EDT) Swab Cervical swab / Unknown us [facility] LAB CYTOLOGY ORDERABLES Final Result EXTERNAL LAB documented in this encounter Visit Diagnoses Not on filedocumented in this encounter Care Teams Smoking Pipe Driller And Threader Relationship Specialty Start Date End Date Ria Williamson MD PCP - General Family Medicine 12/12/22 documented as of this encounter
--- OUTSIDE RECORDS SUMMARY | 2025-03-13 08:52 | XMS_ITS | Encounter Summary ---
Author Organization [facility] Address [address] [place] [address] Care Team Providers Care Block Handler Name Role Phone Ria Williamson MD Primary Care Provider [phone] Encounter Details Date Type Department Care Team (Late st Contact Info) Description 04/16/2024 Clinisync Result Encounter [facility] Department Unsolicited Leeanna Woods, CAM [address] [place] [address] [place] [address] Social History Tobacco Use Types [...] Procedure Name Priority Date/Time Associated Diagnosis Comments XR DEXA AXIAL SKELETON 04/16/2024 5:21 AM EDT documented in this encounter Results * XR DEXA AXIAL SKELETON (04/16/2024 5:21 AM EDT) Anatomical Region Laterality Modality Other 04/16/2024 5:21 AM EDT Narrative 04/16/2024 5:23 AM EDT The [address] [address] XRay Report Signed Patient: RIKA NUNES MR#: [id number] : 1970 Acct:[id number] Age/Sex: 53 / F ADM Date: 04/15/24 Loc: MAMMO Attending Dr: Leeanna Woods Ordering Physician: Leeanna Woods Date of Service: 04/15/24 Procedure(s): XR DEXA axial skeleton Accession Number(s): [id number] cc: Leeanna Woods; Prasad Cassidy D.O. [place] [id number] Patient Name: RIKA NUNES MRN: [facility]:[id number] date: 1970 Sex: F Assigned Patient Location: [facility] Current Patient Location: Accession/Order Number: [id number] Exam Date: 04/15/2024 13:05 Report Date: 04/16/2024 05:21 At the request of: LEEANNA WOODS Procedure: XR DEXA axial skeleton EXAMINATION: XR DEXA axial skeleton HISTORY: POSTMENOPAUSAL STATE COMPARISON: No relevant comparison available. TECHNIQUE: Dual-energy X-ray absorptiometry (DXA) was performed. FINDINGS: SPINE ANALYSIS: Average bone mineral density is 1.169 g/cm2. T-score (standard deviation relative to young adult mean): -0.3 . HIP ANALYSIS: Lowest bone mineral density is within the right femoral neck, 0.970 g/cm2. T-score (standard deviation relative to young adult mean): -0.5 . XR/XR DEXA axial skeleton IMPRESSION: World Health Organization Classification: Normal - Low Fracture Risk FRAX: Cannot be calculated. Pharmacologic treatment recommendations * No uniform recommendation applies to all patients. Management plans must be individualized. * Consider initiating pharmacologic treatment in postmenopausal women and men >= 50 years of age who have the following: Primary fracture prevention: * T-score <= - 2.5 at the femoral neck, total hip, lumbar spine, 33% radius (some uncertainty with existing data) by DXA. * Low bone mass (osteopenia: T-score between - 1.0 and - 2.5) at the femoral neck or total hip by DXA with a 10-year hip fracture risk >= 3% or a 10-year major osteoporosis-related fracture risk >= 20% (i.e., clinical vertebral, hip, forearm, or proximal humerus) based on the [place]-adapted FRAXregistered model. Secondary fracture prevention: * Fracture of the hip or vertebra regardless of BMD [4, 5]. * Fracture of proximal humerus, pelvis, or distal forearm in persons with low bone mass (osteopenia: T-score between - 1.0 and - 2.5). The decision to treat should be individualized in persons with a fracture of the proximal humerus, pelvis, or distal forearm who do not have osteopenia or low BMD [12, 13]. Nicolasa MS, Zonia SL, Teddy KL, Cory EM, Smiley KG, AJ, Vincenzo ES. The clinician's guide to prevention and treatment of osteoporosis. Osteoporos Int. 2021;3310):1026-1474. doi: 10.1007/z55442-095-12170-c. Epub 2021Oct 13. Erratum in: Osteoporos Int. 2021Jan 12;: PMID: 67561955; PMCID: [id number]. Electronically authenticated by: RAS COATES Date: 04/16/2024 05:21 Dictated By: Ras Coates M.D. Signed By: 04/16/24522 DD/ 0 TD/TT: Community Pharmacist: Procedure Note Radiology, Radiologist, MD - 04/16/2024 The [place] [id number] XRay Report Signed Patient: RIKA NUNES SMR#: [id number] : 1970Acct:[id number] Age/Sex: 53 / FADM Date: 04/15/24 Loc: MAMMO Attending Dr: Leeanna Woods Ordering Physician: Leeanna Woods Date of Service: 04/15/24 Procedure(s): XR DEXA axial skeleton Accession Number(s): [id number] cc: Leeanna Woods; Prasad Cassidy D.O. The [address] [address] Patient Name: RIKA NUNES MRN: [id number] date: 1970 Sex: F Assigned Patient Location: MAMMO Current Patient Location: Accession/Order Number: [id number] Exam Date: 04/15/2024 13:05 Report Date: 04/16/2024 05:21 At the request of: LEEANNA WOODS Procedure: XR DEXA axial skeleton EXAMINATION: XR DEXA axial skeleton HISTORY: POSTMENOPAUSAL STATE COMPARISON: No relevant comparison available. TECHNIQUE: Dual-energy X-ray absorptiometry (DXA) was performed. FINDINGS: SPINE ANALYSIS: Average bone mineral density is 1.169 g/cm2. T-score (standard deviation relative to young adult mean): -0.3 . HIP ANALYSIS: Lowest bone mineral density is within the right femoral neck, 0.970 g/cm2. T-score (standard deviation relative to young adult mean): -0.5 . XR/XR DEXA axial skeleton IMPRESSION: World Health Organization Classification: Normal - Low Fracture Risk FRAX: Cannot be calculated. Pharmacologic treatment recommendations * No uniform recommendation applies to all patients. Management plans mustbe individualized. * Consider initiating pharmacologic treatment in postmenopausal women andmen >= 50 years of age who have the following: Primary fracture prevention: * T-score <= - 2.5 at the femoral neck, total hip, lumbar spine, 33%radius (some uncertainty with existing data) by DXA. * Low bone mass (osteopenia: T-score between - 1.0 and - 2.5) at thefemoral neck or total hip by DXA with a 10-year hip fracture risk >= 3% or q54-knpd major osteoporosis-related fracture risk >= 20% (i.e., clinical vertebral, hip, forearm, or proximal humerus) based on the [place]-adapted FRAXregisteredmodel. Secondary fracture prevention: * Fracture of the hip or vertebra regardless of BMD [4, 5]. * Fracture of proximal humerus, pelvis, or distal forearm in persons withlow bone mass (osteopenia: T-score between - 1.0 and - 2.5). The decision totreat should be individualized in persons with a fracture of the proximalhumerus, pelvis, or distal forearm who do not have osteopenia or low BMD [12, 13]. Nicolasa MS, Zonia SL, Teddy KL, Cory EM, Smiley KG, AJ,Vincenzo ES. The clinician's guide to prevention and treatment of osteoporosis.Osteoporos Int. 2021;33(10):0430-4932. doi: 10.1007/t13684-027-72519-g. Epub . Erratum in: Osteoporos Int. 2021Jan 12;: PMID: 71645752; PMCID: [id number]. Electronically authenticated by: RAS COATES Date: 04/16/2024 05:21 Dictated By: Ras Coates M.D. Signed By:04/16/24522 DD/ 0 TD/TT: Community Pharmacist: us Leeanna [facility] Final Result documented in this encounter Visit Diagnoses Not on filedocumented in this encounter Care Teams Block Handler Relationship Specialty Start Date End Date Ria Williamson MD PCP - General Family Medicine 12/12/22 documented as of this encounter
--- OUTSIDE RECORDS SUMMARY | 2025-03-13 08:52 | XMS_ITS | Clinical Summary ---
Author Organization [facility] Address [address] [place] [address] Care Team Providers Care Deputy Head Name Role Phone Unavailable Primary Care Provider Unavailabl e Allergies Active Allergy Reactions Criticality Noted Date Comments Unulzaus-Bbzzbedghh-Gayvqsgon Rash 2006 Medications ranitidine (ZANTAC) 150 mg ORAL Tab Take one(1) tablet daily. 0 02/26/2007 Active Ipbdqoam-Lu-Hoj- Fe-FA ( VITAMIN) ORAL Tab Take one(1) tablet daily. 0 02/26/2007 Active Social History Tobacco Use Types Packs/Day Years Used Date Smoking Tobacco: Never Assessed Comments Unknown Sex and Gender Information Value Date Recorded Sex Assigned at Not on file Legal Sex Female 8:09 AM EST Gender Identity Not on file Sexual Orientation Not on file Plan of Treatment Health Maintenance Due Date Last Done Comments Anxiety Screening 11/15/1989 Depression Screening 11/15/1989 HIV Screening 11/15/1989 Hepatitis C Screening 11/15/1989 DTaP,Tdap,Td Vaccine (1 - Tdap) 11/15/1990 Hepatitis B Vaccine (1 of 3 - 19+ 3-dose series) 11/15 Cervical Cancer Screening 11/15/[address] Colonography 11/15/2016 Cologuard (FIT-DNA) 11/15/2016 Colonoscopy 11/15/2016 Colorectal Cancer Screening 11/15/2016 Diabetes Screening 11/15/2016 Fecal Occult Blood 11/15/2016 Lipid Screening 11/15/2016 Sigmoidoscopy 11/15/2016 Pneumococcal Vaccine: 50+ (1 of 1 - PCV) 11/15/2021 Shingrix Vaccine (1 of 2) 11/15/2021 Influenza Vaccine (#1) 2025 Insurance BLUE CARD PPO [address] [place] [address]
--- NOTE | 2025-03-13 08:54 | US_ITS ---
The [address] [address] Patient Name: JAMES ROSS MRN: [id number] date: 1970 Sex: F Assigned Patient Location: US Current Patient Location: US Accession/Order Number: [id number] Exam Date: 03/13/2025 08:58 Report Date: 03/13/2025 09:38 At the request of: TAMMI IBANEZ DO Procedure: US right upper quadrant LIMITED ABDOMINAL ULTRASOUND CLINICAL HISTORY: Right upper quadrant pain after eating for the past few months. COMPARISON: None The gallbladder is physiologically distended without shadowing calculi, wall thickening or pericholecystic fluid. No intra- or extrahepatic biliary dilatation is evident. The common duct measures 3-4 mm. The liver is normal in echogenicity. No intrahepatic masses are seen. There is appropriate hepatopetal flow within the main portal vein. The pancreas, as visualized shows no significant sonographic abnormality. Evaluation of the right kidney reveals no hydronephrosis or fluid within Winter's pouch. US/US right upper quadrant IMPRESSION: NO GALLBLADDER PATHOLOGY OR OTHER ACUTE FINDINGS. Impression dictated by: Jessica Marrufo M.D. 03/13/2025 9:38 AM Dictation Location: [place] [address] Electronically authenticated by: [id number] Date: 03/13/2025 09:38
== END 2025-03-13 08:51 | disposition home or self-care (01) ==
LOC: US 08:50
PROVIDERS: PCP Internal Medicine; Visit Provider Internal Medicine
DX: R10.11 Right upper quadrant pain (principal)
CPT/HCPCS: 76705